=== PATIENT | male | born 1975 | race African-American/Black ===

== ENCOUNTER 2017-02-28 10:56 | Observation (INO) | payer SELFPAY ==
[2017-02-28] MEDS ORDERED: ASPIRIN 325 MG TABLET PO ONE (11:17)
--- NOTE | 2017-02-28 11:18 | ER Document Report ---
ED Medical Screen (RME) - General Chief Complaint: Chest Pain Stated Complaint: CHEST PAIN Time Seen by Provider: 02/28/17 11:16 Notes: Patient states he has had 2 weeks of constant substernal chest pain. One year ago he had a negative stress test done in [facility]. He states he had similar chest pain at that time they told him that it was pericarditis. He states he has had cough and congestion recently. TRAVEL OUTSIDE OF THE [place] IN LAST 30 DAYS: No - Related Data Allergies/Adverse Reactions: No Known Allergies Allergy (Verified 06/27/13 11:19) Past Medical History Skin Medical History: Denies Hx MRSA - Immunizations Hx Diphtheria, Pertussis, Tetanus Vaccination: No Physical Exam - Vital signs Vitals: Temp Pulse Resp BP Pulse Ox 98.5 F 74 18 124/92 H 100 02/28/17 11:07 02/28/17 11:07 02/28/17 11:07 02/28/17 11:07 02/28/17 11:07 Course - Vital Signs Vital signs: Temp Pulse Resp BP Pulse Ox 98.5 F 74 18 124/92 H 100 02/28/17 11:07 02/28/17 11:07 02/28/17 11:07 02/28/17 11:07 02/28/17 11:07
[2017-02-28 11:40] LABS: ABSOLUTE BASOPHILS # (AUTO) 0.1 10^3/uL (0.0-0.2); ABSOLUTE MONOCYTES (AUTO) 0.4 10^3/uL (0.1-1.4); ABSOLUTE NEUT (AUTO) 4.6 10^3/uL (1.7-8.2); EOSINOPHILS % (AUTO) 0.3 % (0-6); HEMATOCRIT 38.9 % (37.9-51.0); HEMOGLOBIN 12.8 g/dL (13.5-17.0); MEAN CORPUSCULAR HEMOGLOBIN 26.2 pg (27.0-33.4); MEAN CORPUSCULAR HGB CONC 32.7 g/dL (32.0-36.0); MEAN CORPUSCULAR VOLUME 80 fl (80-97); MONOCYTES % (AUTO) 6.2 % (3-13); PLATELET COUNT 275 10^3/uL (150-450); RED BLOOD COUNT 4.87 10^6/uL (4.35-5.55); RED CELL DISTRIBUTION WIDTH 14.3 % (11.5-14.0); SEGMENTED NEUTROPHILS % (AUTO) 64.5 % (42-78); TOTAL CELLS COUNTED % (AUTO) 100 %; WHITE BLOOD COUNT 7.1 10^3/uL (4.0-10.5)
--- NOTE | 2017-02-28 11:53 | RADIOLOGY REPORT (SQ) ---
EXAM DESCRIPTION: CHEST PA/LAT COMPLETED DATE/TIME: 02/28/2017 11:46 am REASON FOR STUDY: pain COMPARISON: 05/20/2009 EXAM PARAMETERS: NUMBER OF VIEWS: two views TECHNIQUE: Digital Frontal and Lateral radiographic views of the chest acquired. RADIATION DOSE: NA LIMITATIONS: none FINDINGS: LUNGS AND PLEURA: No opacities, masses or pneumothorax. No pleural effusion. MEDIASTINUM AND HILAR STRUCTURES: No masses or contour abnormalities. HEART AND VASCULAR STRUCTURES: Heart normal size. No evidence for failure. BONES: No acute findings. HARDWARE: None in the chest. OTHER: No other significant finding. IMPRESSION: NO SIGNIFICANT RADIOGRAPHIC FINDING IN THE CHEST. TECHNICAL DOCUMENTATION: JOB ID: [id number] [employer]- All Rights Reserved
[2017-02-28 11:57] LABS: ALANINE AMINOTRANSFERASE 24 U/L (21-72); ALBUMIN 4.5 g/dL (3.5-5.0); ALKALINE PHOSPHATASE 47 U/L (38-126); ANION GAP 9 (5-19); ASPARTATE AMINO TRANSFERASE 27 U/L (17-59); BILIRUBIN,DIRECT 0.2 mg/dL (0.0-0.4); BILIRUBIN,TOTAL 0.3 mg/dL (0.2-1.3); BLOOD UREA NITROGEN 8 mg/dL (7-20); CARBON DIOXIDE 29 mmol/L (22-30); CHLORIDE 106 mmol/L (98-107); GLUCOSE 102 mg/dL (75-110); POTASSIUM 4.7 mmol/L (3.6-5.0); SODIUM 143.6 mmol/L (137-145); TOTAL PROTEIN 7.5 g/dL (6.3-8.2)
--- NOTE | 2017-02-28 12:34 | ER Document Report ---
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 no asa daily. Came to [facility] today because people keep bugging me to see a doctor bc " my chest has been hurting.", constant steady retrosternal chest pain for several weeks. Also intermittent sharp, squeezing pain when at rest, work, and sleep(wakes him up) which radiates into left neck and left shoulder that lasts a few seconds. Gets nauseated adn shortness of breath when the pain is severe and radiating. No fever or chills. No abdominal pain. No vomiting or diaarhea. Coughing up phelgm for a few days. Family hx: HTN not sure about his dad- age 41 0r 42 after hospital d/c from , next day. Has steady pain now. TRAVEL OUTSIDE OF THE [place] IN LAST 30 DAYS: No - Related Data Allergies/Adverse Reactions: No Known Allergies Allergy (Verified 06/27/13 11:19) Home Medications: Current Home Medications No Home Medications 02/28/17 [History] Past Medical History - General Information source: Patient - Social History Smoking Status: Current Every Day Smoker Chew tobacco use (# tins/day): No Frequency of alcohol use: Social Drug Abuse: Marijuana. denies: Cocaine Occupation: unemployed Lives with: Spouse/Significant other Family History: Reviewed & Not Pertinent Patient has suicidal ideation: No Patient has homicidal ideation: No - Past Medical History Cardiac Medical History: Reports: Hx Hypertension - untreated Renal/ Medical History: Denies: Hx Peritoneal Dialysis Surgical Hx: Negative - Immunizations Hx Diphtheria, Pertussis, Tetanus Vaccination: No Review of Systems - Review of Systems Constitutional: No symptoms reported EENT: No symptoms reported Cardiovascular: See HPI Respiratory: No symptoms reported Gastrointestinal: No symptoms reported Genitourinary: No symptoms reported Male Genitourinary: No symptoms reported Musculoskeletal: No symptoms reported Skin: No symptoms reported Hematologic/Lymphatic: No symptoms reported Neurological/Psychological: No symptoms reported Physical Exam - Vital signs Vitals: Temp Pulse Resp BP Pulse Ox 98.5 F 74 18 124/92 H 100 02/28/17 11:07 02/28/17 11:07 02/28/17 11:07 02/28/17 11:07 02/28/17 11:07 Interpretation: Normal - General General appearance: Appears well, Alert In distress: None - HEENT Head: Normocephalic, Atraumatic Eyes: Normal Conjunctiva: Normal Pupils: PERRL Mouth/Lips: Normal Mucous membranes: Normal Pharynx: Normal Neck: Supple. No: Lymphadenopathy, Thyromegally - Respiratory Respiratory status: No respiratory distress Chest status: Nontender Breath sounds: Normal Chest palpation: Normal - Cardiovascular Rhythm: Regular Heart sounds: Normal auscultation Murmur: No - Abdominal Inspection: Normal Distension: No distension Bowel sounds: Normal Tenderness: Nontender Organomegaly: No organomegaly. No: Hepatomegaly, Splenomegaly - Back Back: Normal, Nontender - Extremities General upper extremity: Normal inspection, Nontender, Normal color, Normal ROM , Normal temperature General lower extremity: Normal inspection, Nontender, Normal color, Normal ROM , Normal temperature, Normal weight bearing. No: Gabriel's sign - Neurological Neuro grossly intact: Yes Cognition: Normal Orientation: AAOx4 Sebastian Coma Scale Eye Opening: Spontaneous Sebastian Coma Scale Verbal: Oriented [place] Coma Scale Motor: Obeys Commands Sebastian Coma Scale Total: 15 Speech: Normal Motor strength normal: LUE, RUE, LLE, RLE Sensory: Normal - Psychological Associated symptoms: Normal affect, Normal mood - Skin Skin Temperature: Warm Skin Moisture: Dry Skin Color: Normal Skin irregularity: Rash Course - Re-evaluation Re-evalutation: 02/28/17 15:08 First troponin is negative, EKG normal sinus rhythm with no acute changes, chest x-ray is negative, patient's heart score is 1 due to smoking and untreated hypertension. I spoke with Dr. Rg who recommends admission and the patient is willing to stay. I called Dr. Mendoza the hospitalist who will admit to telemetry observation. Second troponin is being drawn and a repeat EKG. NTG 0.4mg x 2 SL did dull the chest pain which he did not want to admit at first. Paste 0.5mg applied.BP after NTG SL 125/83 - Vital Signs Vital signs: Temp Pulse Resp BP Pulse Ox 97.8 F 67 22 H 125/81 100 02/28/17 17:35 02/28/17 17:35 02/28/17 19:58 02/28/17 19:31 02/28/17 19:58 - Laboratory Result Diagrams: 02/28/17 11:23 02/28/17 11:23 Laboratory results interpreted by me: 02/28/17 02/28/17 11:23 11:23 Hgb 12.8 L MCH 26.2 L RDW 14.3 H Creatine Kinase 392 H Discharge - Discharge Clinical Impression: Chest pain Qualifiers: Chest pain type: unspecified Qualified Code(s): R07.9 - Chest pain, unspecified Condition: Good Disposition: ADMITTED OBSERVATION Admitting Provider: Hospitalist Unit Admitted: Telemetry
[2017-02-28] MEDS ORDERED: NITROGLYCERIN 0.4 MG/TAB 25 TAB/BOTTLE SL PRN (13:05)
[2017-02-28] MEDS ORDERED: ACETAMINOPHEN 325 MG TABLET PO ONE (15:07)
[2017-02-28] MEDS ORDERED: NITROGLYCERIN 2% OINTMENT 1 GM PACKET TP ONE ×2 (15:07→19:30)
[2017-02-28] MEDS ORDERED: ACETAMINOPHEN 325 MG TABLET PO PRN (16:48)
--- NOTE | 2017-02-28 17:27 | EKG REPORT ---
SEVERITY:- NORMAL ECG - SINUS RHYTHM ST ELEV, PROBABLE NORMAL EARLY REPOL PATTERN : Confirmed by: Matt Qureshi 28-Feb-2017 17:25:58
--- NOTE | 2017-02-28 17:27 | EKG REPORT ---
SEVERITY:- NORMAL ECG - SINUS RHYTHM : Confirmed by: Matt Qureshi 28-Feb-2017 17:26:03
--- NOTE | 2017-02-28 17:28 | PDOC H&P ---
History of Present Illness Admission Date/PCP: 02/28/17 15:12 Patient complains of: Dizziness and Chest Pain History of Present Illness: ASYA FARFAN is a 41 year old male presents with complaint of near syncope and chronic chest pain. Patient states that he has problems with dizziness when going from a seated to standing position and he also reports having dizziness when already standing and talking and becoming very lightheaded. Patient reports that he has passed out but that has not happened for at least 6- 7 months. Patient denies any nausea or vomiting with these episodes. Patient states that he was at [facility] where he had a stress test done that demonstrated no evidence of ischemia. Patient reports that he has chronic chest pain that he has dealt with for several years. Patient reports that the chest pain is not what brought him to the emergency room it was feeling lightheaded. Past Medical History Cardiac Medical History: Reports: Other - Chronic chest pain Past Surgical History Past Surgical History: Reports: None Social History Smoking Status: Current Every Day Smoker Frequency of Alcohol Use: None Drugs: None Family History Family History: Reviewed & Not Pertinent Parental Family History Reviewed: Yes Children Family History Reviewed: Yes Sibling(s) Family History Reviewed.: Yes Medication/Allergy Allergies/Adverse Reactions: No Known Allergies Allergy (Verified 06/27/13 11:19) Review of Systems Constitutional: ABSENT: chills, fever(s), headache(s), weight gain, weight loss Eyes: ABSENT: visual disturbances Ears: ABSENT: hearing changes Cardiovascular: PRESENT: other - passing out, chest pain Respiratory: ABSENT: cough, hemoptysis Gastrointestinal: ABSENT: abdominal pain, constipation, diarrhea, hematemesis, hematochezia, nausea, vomiting Genitourinary: ABSENT: dysuria, hematuria Musculoskeletal: ABSENT: joint swelling Integumentary: ABSENT: rash, wounds Neurological: ABSENT: abnormal gait, abnormal speech, confusion, dizziness, focal weakness, syncope Psychiatric: ABSENT: anxiety, depression, homidical ideation, suicidal ideation Endocrine: ABSENT: cold intolerance, heat intolerance, polydipsia, polyuria Hematologic/Lymphatic: ABSENT: easy bleeding, easy bruising Physical Exam Vital Signs: Temp Pulse Resp BP Pulse Ox 98.5 F 65 16 130/94 H 100 02/28/17 11:07 02/28/17 13:06 02/28/17 13:06 02/28/17 13:06 02/28/17 13:06 General appearance: PRESENT: no acute distress, thin Head exam: PRESENT: atraumatic, normocephalic Eye exam: PRESENT: conjunctiva pink, EOMI. ABSENT: scleral icterus Ear exam: PRESENT: normal external ear exam Mouth exam: PRESENT: moist, tongue midline Neck exam: ABSENT: carotid bruit, JVD, lymphadenopathy, thyromegaly Respiratory exam: PRESENT: clear to auscultation olena. ABSENT: rales, rhonchi, wheezes Cardiovascular exam: PRESENT: other Pulses: PRESENT: normal dorsalis pedis pul Vascular exam: PRESENT: normal capillary refill GI/Abdominal exam: PRESENT: normal bowel sounds, soft. ABSENT: distended, guarding, mass, organolmegaly, rebound, tenderness Rectal exam: PRESENT: deferred Extremities exam: PRESENT: full ROM. ABSENT: calf tenderness, clubbing, pedal edema Neurological exam: PRESENT: alert, awake, oriented to person, oriented to place , oriented to time, oriented to situation, CN II-XII grossly intact. ABSENT: motor sensory deficit Psychiatric exam: PRESENT: appropriate affect, normal mood. ABSENT: homicidal ideation, suicidal ideation Skin exam: PRESENT: dry, intact, warm. ABSENT: cyanosis, rash Results Impressions: Chest X-Ray 02/28/17 11:16 IMPRESSION: NO SIGNIFICANT RADIOGRAPHIC FINDING IN THE CHEST. Assessment & Plan - Diagnosis (1) Near syncope Is this a current diagnosis for this admission?: Yes Plan: We will check orthostatics, 2D echo, and consult cardiology. It appears that this is been a chronic problem for patient and workup may have to continue as outpatient. Will check Drug screen. TSH and Free T4. (2) Chest pain Qualifiers: Chest pain type: unspecified Qualified Code(s): R07.9 - Chest pain, unspecified Is this a current diagnosis for this admission?: Yes Plan: 2D echo and troponins. EKG demonstrated no acute changes. Will Consult Cardiology to evaluate patient. (3) DVT prophylaxis Is this a current diagnosis for this admission?: Yes Plan: SCDs - Time Time Spent: 30 to 50 Minutes Anticipated discharge: Home
[2017-03-01 01:50] VITALS: BP 124/95
== END 2017-02-28 23:40 | disposition left against medical advice (07) ==
LOC: ER 10:56 → EH 15:12
PROVIDERS: ADMIT Emergency Medicine; ATTEND Emergency Medicine
DX: R55 Syncope and collapse (principal); G89.29 Other chronic pain; R07.9 Chest pain, unspecified; R42 Dizziness and giddiness; F17.200 Nicotine dependence, unspecified, uncomplicated; R05 Cough; F12.10 Cannabis abuse, uncomplicated; Z82.49 Family history of ischemic heart disease and other diseases of the circulatory system
CPT/HCPCS: 36415; 71046; 80053; 82550; 82553; 84484; 85025; 93005; 93010; 99285